=== PATIENT | female | born 1950 | race Caucasian/White ===

== ENCOUNTER 2019-11-10 07:56 | Day surgery (SDC) | payer OTHER ==
--- NOTE | 2019-11-07 12:31 | RAD REPORT ---
EXAM DESCRIPTION: RAD - Chest Pa And Lat (2 Views) - 11/07/2019 12:26 pm CLINICAL HISTORY: pre op Chest pain. COMPARISON: No comparisons FINDINGS: The lungs are clear. The heart is mildly enlarged in size. No displaced fractures.
--- NOTE | 2019-11-09 07:52 | EKG ---
Test Date: 2019-11-07 Test Time: 12:26:40 Ultrasonic Hand Solderer: TG MEASUREMENT RESULTS: Intervals: Rate: 55 OR: 166 QRSD: 82 QT: 420 QTc: 401 [place]: P: 46 OR: 166 QRS: 7 T: 0 INTERPRETIVE STATEMENTS: Sinus bradycardia Minimal voltage criteria for LVH, may be normal variant Septal infarct, age undetermined Abnormal ECG No previous ECG available for comparison Electronically Signed On 11-09-19 07:49:42 CDT by Bi Mcmahan
[2019-11-10] MEDS ORDERED: CEFAZOLIN/SWI 1gm 1 GM/10 ML SYR ONE (08:59)
[2019-11-10] MEDS ORDERED: Ringers Lactate 1,000 ML IV ONE (08:59)
[2019-11-10] MEDS ORDERED: propofoL 200 MG/20 ML VIAL IV ONE (08:59)
[2019-11-10] MEDS ORDERED: FENTANYL CITR 100 MCG/2 ML ONE (08:59)
[2019-11-10] MEDS ORDERED: MIDAZOLAM HCL 2 MG/2 ML INJ ONE (09:00)
[2019-11-10] MEDS ORDERED: dexAMETHasone 10 MG/ML VIAL ONE (09:00)
[2019-11-10] MEDS ORDERED: LIDOCAINE 2% MPF 5 ML VIAL ONE (09:00)
[2019-11-10] MEDS ORDERED: LIDOCAINE 1% 20 ML MDV ONE (09:23)
[2019-11-10] MEDS ORDERED: GLYCOPYRROLATE 0.2 MG/ML SYR ONE ×2 (10:08→10:09)
[2019-11-10] MEDS ORDERED: KETOROLAC 30 MG/ML INJ ONE (10:42)
[2019-11-10 14:21] VITALS: BP 153/74; TEMP 97; O2SAT 100
--- NOTE | 2019-11-10 21:07 | OP ---
Date of Procedure: 11/10/2019 Surgeon: Yoseph Ceballos MD [employer] Technical Officer: ISH Carias Preoperative Diagnoses: Headaches, left-sided, rule out temporal arteritis and posterior neck mass. Postoperative Diagnoses: Headaches, left-sided, rule out temporal arteritis and posterior neck mass. Procedure: Left temporal artery biopsy, dopplerated wide excision posterior neck mass, 5 x 3 cm with layered closure. Estimated Blood Loss: Minimal. Specimens: Left temporal artery and posterior neck mass, which was a sebaceous cyst. Finding: As above. Anesthesia: General. Complications: None. The patient tolerated the procedure in stable condition, taken to Recovery in good general condition. Procedure In Detail: The patient was brought to the OR and placed in supine position. General anest hesia was begun. The patient was placed in the right lateral position, prepped and draped in the usu al sterile fashion. Marcaine 0.5% was infiltrated locally. A 15-blade was used to make a 5 x 3 cm i ncision in the posterior neck. Subcutaneous tissue divided and then the entire sebaceous cyst includ ing wall contents in 1 piece was excised, sent to Pathology. Wound was irrigated. Bleeding controll ed with cautery. Flaps created and 2-0 chromic used to approximate the subcutaneous tissue and 3-0 n ylon used to close the skin. Sterile dressing was applied. Doppler device was used to identify a br anch of the temporal artery anterior and superior to the left ear and then Marcaine 0.5% was infiltra leslie locally and a 15 blade was used to make a 4 cm incision, and then deep to the subcutaneous tissue , a branch of the temporal artery identified, proximal and distal control obtained, and then segment was excised and sent to Pathology. Wound irrigated and bleeding controlled with cautery. The anteri or chromic used for subcutaneous tissue and close the skin. Sterile dressing was applied. The patie nt was awakened and taken to Recovery in good general condition. Discharge Note: The patient will go to Day Surgery and home when stable. Disposition: Home. Condition: Stable. Discharge Instructions: Resume home medications and diet. Activity as tolerated. No heavy lifting. Remove outer dressing in 2 days. Shower. Keep wound clean and dry. Keep Steri-Strips on at all t imes. Follow up in my office in one week. Call for appointment. Follow up with Dr. Montes. Tylenol No. 3 one tablet p.o. q.4 p.r.n. pain. Keflex 500 mg p.o. q.6. /SINDY Voice ID: [id number] Report ID: [id number]
== END 2019-11-10 12:40 | disposition home or self-care (01) ==
LOC: OR 07:56
PROVIDERS: ATTEND Surgery
PROC: 03BT0ZX Excision of Left Temporal Artery, Open Approach, Diagnostic (ICD-10-PCS; 2019-11-10)
PROC: 0HB4XZZ Excision of Neck Skin, External Approach (ICD-10-PCS; principal; 2019-11-10 09:45)
DX: R51 Headache (principal); L72.0 Epidermal cyst; Z11.59 Encounter for screening for other viral diseases; I11.9 Hypertensive heart disease without heart failure; E03.9 Hypothyroidism, unspecified; Z79.899 Other long term (current) drug therapy
CPT/HCPCS: 37609; 11423; 12042; 93005; 88304; 88305; 71046; U0002; J2704; J2250; J3010; J1100; J0690; J7120

== ENCOUNTER → 2022-05-01 | Day surgery (SDC) | payer OTHER ==
--- NOTE | 2022-05-01 10:48 | RAD REPORT ---
EXAM DESCRIPTION: US - Guided FNA Non Breast - 05/01/2022 10:15 am CLINICAL HISTORY: E04.1 COMPARISON: Thyroid Para Parotid Gland dated 04/05/2022 FINDINGS: Preoperative diagnosis: 19 mm left thyroid nodule.. Post operative diagnosis: Same. Conscious Sedation: None Fluoroscopy time: None Contrast used: None Estimated blood loss: Minimal Specimens:5 x 25 gauge FNA specimens The left neck was prepped and draped in the usual sterile fashion. 1% lidocaine was infiltrated into the subcutaneous tissues for local anesthesia. Real time ultrasound scanning of the left neck demonst rated 19 mm mildly heterogenous left thyroid nodule. Under ultrasound guidance, using multiple 25 gau ge needles, 5 specimens were obtained of this lesion and sent to pathology for evaluation. There were no complications. IMPRESSION: Technically successful ultrasound-guided left thyroid nodule FNA procedure.
== END ==
LOC: FNA 08:00
PROVIDERS: ATTEND Otolaryngology Facial Plastic Surgery
PROC: 0GBG3ZX Excision of Left Thyroid Gland Lobe, Percutaneous Approach, Diagnostic (ICD-10-PCS; principal; 2022-05-01)
DX: E04.1 Nontoxic single thyroid nodule (principal)
CPT/HCPCS: 88162; 88305